=== PATIENT | male | born 1995 | race Caucasian/White ===

== ENCOUNTER 2018-11-29 21:29 | Emergency (ER) | payer OTHER, SELFPAY ==
[~2018-11-29] VITALS: Ht 193 cm; Wt 73.2 kg
[2018-11-29 21:32] VITALS: BP 164/75
[2018-11-29] MEDS ORDERED: LIDOCAINE-MPF 1%, 5ML ONE (21:41)
--- NOTE | 2018-11-29 22:24 | NUR ---
Patient/Caregiver given discharge instructions and they have confirmed that they understand the instructions. Patient ambulatory with steady gait.
== END 2018-11-29 22:25 | disposition home or self-care (01) ==
LOC: ED 21:56
DX: S61.213A Laceration without foreign body of left middle finger without damage to nail, initial encounter (principal); S61.215A Laceration without foreign body of left ring finger without damage to nail, initial encounter; X58.XXXA Exposure to other specified factors, initial encounter; Y93.89 Activity, other specified; Y92.69 Other specified industrial and construction area as the place of occurrence of the external cause; Y99.0 Civilian activity done for income or pay
CPT/HCPCS: 99283

== ENCOUNTER → 2019-01-07 | Outpatient (CLI) | payer OTHER | END | disposition home or self-care (01) | LOC: CFH 07:41 | PROVIDERS: ATTEND Family Medicine | DX: M54.5 Low back pain (principal); M54.9 Dorsalgia, unspecified; R20.0 Anesthesia of skin | CPT/HCPCS: 72148 ==